=== PATIENT | male | born 1970 | race Caucasian/White ===

== ENCOUNTER 2017-03-02 05:49 | Emergency (ER) | payer SELFPAY ==
[~2017-03-02] VITALS: Ht 180.3 cm; Wt 138.6 kg
[2017-03-02 07:06] LABS: HEMATOCRIT 46.3 % (39.2-51.8); HEMOGLOBIN 15.9 g/dL (13.7-18.0); WHITE BLOOD COUNT 8.9 x10^3/uL (3.4-10)
[2017-03-02 07:18] LABS: BLOOD UREA NITROGEN 6 mg/dL (7-18)
[2017-03-02 07:46] VITALS: BP 127/95
== END 2017-03-02 07:49 | disposition home or self-care (01) ==
LOC: ED 07:12
DX: J20.8 Acute bronchitis due to other specified organisms (principal); B96.89 Other specified bacterial agents as the cause of diseases classified elsewhere; H10.023 Other mucopurulent conjunctivitis, bilateral
CPT/HCPCS: 36415; 71010; 80048; 82040; 85025; 93005; 99285